=== PATIENT | male | born 1935 | race Caucasian/White ===

== ENCOUNTER 2021-03-20 14:20 | Emergency (ER) | payer MEDICARE ==
[2021-03-20 15:07] LABS: BASOPHIL 0.8 % (0-2); EOSINOPHIL 4.1 % (0-7); HCT 34.1 % (42.0-52.0); HGB 11.4 g/dl (13.2-18.0); LYMPHOCYTE 36.4 % (15-48); MCH 30.8 pg (25.0-31.0); MCHC 33.4 g/dL (32.0-36.0); MCV 92.2 fL (78.0-100.0); MONOCYTE 9.3 % (0-12); MPV 10.7 fL (6.0-9.5); NEUTROPHIL 48.9 % (41-80); NRBC 0; PLT 129 K/uL (150-400); RDW 12.3 % (11.5-14.0); WBC 3.9 K/uL (4.0-10.5)
[2021-03-20 15:19] LABS: INR 1.19 (0.9-1.2); PROTHROMBIN TIME 14.3 SECONDS (11.4-13.6)
[2021-03-20 15:20] LABS: PTT 57.1 SECONDS (22.2-34.7)
[2021-03-20 15:34] LABS: BUN/CREAT RATIO (CALC) 35.8 RATIO; CREATININE 1.34 mg/dL (0.67-1.17); POTASSIUM 4.6 mmol/L (3.5-5.1)
== END 2021-03-20 16:57 | disposition home or self-care (01) ==
LOC: FER 14:20
PROVIDERS: Emergency Medicine
DX: D67 Hereditary factor IX deficiency (principal); Z88.8 Allergy status to other drugs, medicaments and biological substances
CPT/HCPCS: 36415; 80048; 85025; 85250; 85610; 85730; 99283